=== PATIENT | female | born 1940 | race Caucasian/White ===

== ENCOUNTER 2017-11-18 09:25 | Outpatient (CLI) ==
--- NOTE | 2017-11-18 10:31 | DI ---
EXAM: Three views of the left knee. History: Left knee pain. Findings: No acute fracture or dislocation. Severe tricompartmental joint space narrowing with layne inal sclerosis, osteophyte formation. There is also chondrocalcinosis. Mild patellar enthesiopathy. Joint effusion is seen. There is medial soft tissue swelling and anterior soft tissue swelling. Impression: 1. No acute osseous abnormality. 2. Severe arthritis 3. Joint effusion
== END 2017-11-18 09:26 | disposition home or self-care (01) ==
LOC: RAD 09:25
PROVIDERS: ATTEND Family Medicine
DX: M25.562 Pain in left knee (principal); M25.462 Effusion, left knee

== ENCOUNTER 2018-06-03 08:52 | Observation (INO) ==
[2018-06-03 09:44] VITALS: BMI 25.3
[2018-06-03] MEDS ORDERED: LASIX IVP ONE ×2 (13:00→15:00)
[2018-06-03] MEDS ORDERED: LASIX ONE (17:33)
[2018-06-03] MEDS ORDERED: INFED 975 MG in SODIUM CHLORIDE 500 ML IV ONE (18:45)
[2018-06-03] MEDS ORDERED: INFED IVP STA (18:49)
[2018-06-03] MEDS ORDERED: INFED IVP ONE (18:57)
[2018-06-03 21:34] VITALS: BP 147/72; TEMP 98.6
[2018-06-04] MEDS ORDERED: LASIX IVP ONE (15:00)
--- NOTE | 2018-08-03 13:19 | SSS ---
DATE OF SERVICE: 06/04/18 DISCUSSION: This is an 78-year-old lady with a history of severe knee pain who is actually scheduled for a knee replacement next week. However, in preop lab she was found to be severely anemic. She denied any melenic stools or bright red blood in the stool. She did notice that she felt weak and occasionally short of breath with exertion. She was found to have hemoglobin of 8 with significant symptoms of shortness of breath on any type of exertion therefore she was admitted for transfusion with improvement. She was admitted for packed red cells and further evaluation of her anemia. PAST MEDICAL HISTORY: MEDICATIONS: Buspar Vitamin B12 Calcium Carbonate Lisinopril Hydrochlorothiazide [place] 3 ALLERGIES: NKDA PAST MEDICAL HISTORY: History of anxiety History of hypertension PAST SURGICAL HISTORY: Denies any previous surgeries SOCIAL HISTORY: She is . Denies any illicit substance or tobacco use. FAMILY HISTORY: Reviewed and thought not to be pertinent to discussion. REVIEW OF SYSTEMS: She notes weakness and shortness of breath with moderate exertion. Denies any chest pain, abdominal pain, blood in the stool, urinary symptoms or seizures. PHYSICAL EXAMINATION: VITAL SIGNS: Temperature 96, pulse 70, respirations 18 and blood pressure 120/ 80. HEENT: Pupils are round. NECK: Supple. CHEST: Clear. CARDIOVASCULAR: Regular rate and rhythm. ABDOMEN: Soft, nontender. EXTREMITIES: Distal extremities without cyanosis or edema. CLINICAL COURSE: She was admitted to my services and given transfusions of packed red cells with improvement in her symptoms. Repeat hematocrit was improved and at this point the patient was discharged for further outpatient followup and to get knee surgery next week. ZOE
== END 2018-06-04 00:15 | disposition home or self-care (01) ==
LOC: MEDSURG B 08:52
PROVIDERS: ADMIT Family Medicine; ATTEND Family Medicine
DX: R53.1 Weakness (principal); M25.569 Pain in unspecified knee; D64.9 Anemia, unspecified; R06.02 Shortness of breath
CPT/HCPCS: 36415; 36430; 80053; 82607; 82728; 83036; 83540; 85014; 85018; 85025; 86850; 86900; 86922; 96365; 96366; 96375; 96376

== ENCOUNTER 2020-11-18 11:32 | Observation (INO) ==
[2020-11-18] MEDS ORDERED: SODIUM CHLORIDE 1,000 ML IV STA ×2 (12:07→14:34)
--- NOTE | 2020-11-18 12:11 | ED.PDOC ---
General ED Provider: Dr. CASSIE MELVIN MD Chief Complaint: Weakness Stated Complaint: mild to mod generalized weakness for a few days, no recent injury despite hx of falling, hx shingles and arthritis and htn, no fever, no NV, pt denies any pain Time Seen by Provider: 11/18/20 11:52 Mode of Arrival: Wheelchair Information Source: Patient Primary Care Provider: BATOOL YUNG Nursing and Triage Documentation Reviewed and Agree: Yes Does patient meet sepsis criteria?: No System Inflammatory Response Syndrome: Not Applicable Sepsis Protocol: For patient's 13 years and over: Temp is 96.8 and below OR 101 and greater Pulse >90 BPM Resp >20/minute Acutely Altered Mental Status Are patient's symptoms suggestive of a new infection, such as: -Pneumonia -Skin, Soft Tissue -Endocarditis -UTI -Bone, Joint Infection -Implantable Device -Acute Abdominal Infection -Wound Infection -Meningitis -Blood Stream Catheter Infection -Unknown Review of Systems Review Of Systems Constitutional: Reports Weakness; Denies Fever Eyes: Denies Vision change Ears, Nose, Mouth, Throat: Denies Throat pain Respiratory: Denies Short of air Cardiac: Denies Chest pain GI: Denies Abdominal pain : Denies Frequency Musculoskeletal: Denies Neck pain Skin: Denies Rash or Cyanosis Neurological: Denies Cognitive dysfunction or Headache All Other Systems: Other PFSH Female Reproductive History Menstrual Hx Hysterectomy: No Hx Tubal Ligation: Yes Physical Exam Physical Exam Appearance: Reports Well-appearing Ill-appearing: Not Applicable Pain Distress: Not Applicable Eyes: Reports LINDA, EOMI and Conjunctiva clear ENT: Reports Oropharynx normal Neck: Supple Respiratory: Reports Airway patent, Breath sounds clear and Breath sounds equal Cardiovascular: Reports RRR GI/: Reports Soft, Nontender and Other (hemoccult neg stool, no hemorrhoids, +stage 1 erythema sacral pressure sore, no ulceration) Musculoskeletal: Reports 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) and Other (paraspinal tender mid back) Skin: Reports Warm and Dry Neurological: Reports Cranial nerves intact, Alert and Oriented Psychiatric: Reports Affect appropriate Interpretation Radiology Interpretation Radiology Interpretation By: Radiologist Exam Interpreted: CT Scan Xray Comments: +sinusitis o/w nap per Rad Radiology Interpretation By: Radiologist Radiology Results: No acute changes Exam Interpreted: CXR EKG Interpretation Time of EKG #1: 14:29 Rate: Normal Rhythm: Sinus Interpretation: lvh, no stemi Critical Care Note Critical Care Note Total Critical Care Time (mins): 0 Course Course Hematology/Chemistry: 11/18/20 12:25 11/18/20 12:25 Orders, Labs, Meds: Lab Review 11/18/20 11/18/20 11/18/20 12:25 12:25 12:25 WBC 5.84 RBC 3.44 L Hgb 8.8 L Hct 30.4 L MCV 88.4 MCH 25.6 L MCHC 28.9 L RDW Coeff of [place] 17.0 H Plt Count 340 Immature Gran % (Auto) 0.3 Neut % (Auto) 62.3 Lymph % (Auto) 24.5 [place] % (Auto) 7.7 Eos % (Auto) 4.5 Baso % (Auto) 0.7 Neut # (Auto) 3.6 Lymph # (Auto) 1.4 [place] # (Auto) 0.5 Eos # (Auto) 0.3 Baso # (Auto) 0.0 Immature Gran # (Auto) 0.0 Hypochromasia 1+ Anisocytosis Not present Sodium 142.0 Potassium 3.48 L Chloride 106.0 Carbon Dioxide 27.3 Anion Gap 12.18 BUN 17.9 H Creatinine 0.64 Estimated GFR (MDRD) 89.00 BUN/Creatinine Ratio 27.96 Glucose 93.2 Lactic Acid 1.02 Calcium 9.32 Total Bilirubin 0.39 AST 27.0 ALT 19.7 Alkaline Phosphatase 61.8 Troponin I < 0.012 Total Protein 7.66 Albumin 3.66 Globulin 4.00 Albumin/Globulin Ratio 0.91 Urine Color Urine Clarity Urine pH Ur Specific [place] Urine Protein Urine Glucose (UA) Urine Ketones Urine Blood Urine Nitrite Urine Bilirubin Urine Urobilinogen Ur Leukocyte Esterase Stl Occult Blood (IFOB) Stool Occult Blood #2 Stool Occult Blood #3 11/18/20 11/18/20 13:55 14:00 WBC RBC Hgb Hct MCV MCH MCHC RDW Coeff of [place] Plt Count Immature Gran % (Auto) Neut % (Auto) Lymph % (Auto) [place] % (Auto) Eos % (Auto) Baso % (Auto) Neut # (Auto) Lymph # (Auto) [place] # (Auto) Eos # (Auto) Baso # (Auto) Immature Gran # (Auto) Hypochromasia Anisocytosis Sodium Potassium Chloride Carbon Dioxide Anion Gap BUN Creatinine Estimated GFR (MDRD) BUN/Creatinine Ratio Glucose Lactic Acid Calcium Total Bilirubin AST ALT Alkaline Phosphatase Troponin I Total Protein Albumin Globulin Albumin/Globulin Ratio Urine Color Yellow Urine Clarity Clear Urine pH 5.5 Ur Specific [place] 1.010 Urine Protein Negative Urine Glucose (UA) Negative Urine Ketones Negative Urine Blood Negative Urine Nitrite Negative Urine Bilirubin Negative Urine Urobilinogen 0.2 Ur Leukocyte Esterase Negative Stl Occult Blood (IFOB) Negative Stool Occult Blood #2 Pending Stool Occult Blood #3 Pending Orders Category Date Time Status EKG-(ED ONLY) Stat CARDIO 11/18/20 12:07 Completed CBC W/ AUTO DIFF Stat LAB 11/18/20 12:25 Completed COMPREHENSIVE METABOLIC PANEL Stat LAB 11/18/20 12:25 Completed LACTIC ACID Stat LAB 11/18/20 12:25 Completed OCCULT BLOOD, STOOL Stat LAB 11/18/20 14:00 Results RBC MORPHOLOGY Stat LAB 11/18/20 12:25 Completed TROPONIN I Stat LAB 11/18/20 12:25 Completed URINALYSIS C & S IF INDICATED Stat LAB 11/18/20 13:55 Completed Sodium Chloride 0.9% [Sodium Chloride] 1,000 ml MEDS 11/18/20 12:07 Discontinued IV BOLUS CHEST, 1V AP ONLY Stat RADS 11/18/20 12:[address] CERVICAL SPINE W/O CONTRAST Stat RADS 11/18/20 14:[address] HEAD W/O CONTRAST Stat RADS 11/18/20 12:[address] LUMBAR SPINE W/O CONTRAST Stat RADS 11/18/20 14:[address] PELVIS W/O CONTRAST Stat RADS 11/18/20 14:[address] THORACIC SPINE W/O CONTRAST Stat RADS 11/18/20 14:25 Ordered Medications Discontinued Medications Generic Name Dose Route Start Last Admin Trade Name Freq PRN Reason Stop Dose Admin Sodium Chloride 1,000 mls @ 1,000 mls/hr 11/18/20 12:07 11/18/20 12:45 Sodium Chloride IV 11/18/20 13:06 1,000 mls/hr BOLUS STA Administration Vital Signs: Temp Pulse Resp BP Pulse Ox 11/18/20 11:33 98.7 F 68 18 121/71 97 Discharge Plan Discharge Patient Disposition: PLACED OBSERVATION Discharge Problem: Weakness, Sinusitis Prescriptions: No Action calcium carbonate-vitamin D3 [Calcium 600 + D(3)] 1 EACH tablet 1 ea PO DAILY RF: 0 buspirone 15 MG tablet 0.5 tab PO BID RF: 0 Fish Oil 1 EACH capsule 1 ea PO DAILY RF: 0 vitamin [id number] acid 1 EACH tablet 1 ea PO DAILY RF: 0 lisinopril-hydrochlorothiazide 10-12.5 mg Tablet 1 tab PO DAILY RF: 0 acetaminophen [Tylenol Arthritis Pain] 650 mg Tablet Extended Release 650 mg PO Q8H PRN (Reason: Pain) RF: 0 ED Provider: CASSIE MELVIN Condition: Stable Physician Progress Note: []differential includes deconditioning, occult fx, anemia, lung nodule, admit to obs d/w Dr Yung
[2020-11-18 12:31] LABS: BASOPHILS % (AUTO) 0.7 % (0.0-3.0); EOSINOPHILS # (AUTO) 0.3 K/ul (0.0-0.7); EOSINOPHILS % (AUTO) 4.5 % (0.0-7.0); HEMATOCRIT 30.4 % (37.0-47.0); HEMOGLOBIN 8.8 g/dl (12.0-16.0); IMMATURE GRANULOCYTE % (AUTO) 0.3 % (0.0-5.0); LYMPHOCYTES # (AUTO) 1.4 K/uL (0.60-3.4); LYMPHOCYTES % (AUTO) 24.5 (10.0-50.0); MEAN CORPUSCULAR HEMOGLOBIN 25.6 pg (27.0-31.0); MEAN CORPUSCULAR HGB CONC 28.9 (31.8-35.4); MEAN CORPUSCULAR VOLUME 88.4 fl (81.0-99.0); MONOCYTES # (AUTO) 0.5 K/uL (0.4-2.0); MONOCYTES % (AUTO) 7.7 (0-10); NEUTROPHILS # (AUTO) 3.6 K/ul (2.0-6.9); NEUTROPHILS % (AUTO) 62.3 % (42.2-75.2); PLATELET COUNT 340 10^3/uL (140-440); RED BLOOD COUNT 3.44 10^6/ul (4.20-5.40); WHITE BLOOD COUNT 5.84 K/ul (4.6-10.2)
[2020-11-18 12:41] LABS: ANISOCYTOSIS NOT PRESENT (NOT PRESENT); HYPOCHROMASIA 1+ (NOT PRESENT)
[2020-11-18 12:51] LABS: ALANINE AMINOTRANSFERASE 19.7 U/L (0-35); ALBUMIN 3.66 g/dL (3.5-5.0); ALKALINE PHOSPHATASE 61.8 U/L (53-141); BILIRUBIN,TOTAL 0.39 mg/dL (0.2-1.3); BLOOD UREA NITROGEN 17.9 mg/dL (7-17); CALCIUM 9.32 mg/dL (8.4-10.2); CARBON DIOXIDE 27.3 mmol/L (22-30.0); CREATININE 0.64 mg/dL (0.60-1.30); GLUCOSE 93.2 mg/dL (74-106); POTASSIUM 3.48 mmol/L (3.5-5.1); TOTAL PROTEIN 7.66 g/dL (6.3-8.2)
[2020-11-18 13:03] LABS: TROPONIN I < 0.012 ng/ml (0.0000-0.120)
--- NOTE | 2020-11-18 13:09 | CT ---
EXAM: CT Head HISTORY: Weak COMPARISON: 11/13/2020 TECHNIQUE: CT head performed without contrast FINDINGS: There is no mass effect, midline shift, or intracranial hemmorhage. Hull white differenti ation is preserved. There is no extra-axial collection. The ventricles, sulci, and basal cisterns a re patent and symmetric. There is chronic ischemic disease of the white matter and cerebral volume l oss. There is no depressed calvarial fracture. The mastoid air cells are clear. Mucosal thickening of the paranasal sinuses. There are intracranial atherosclerotic calcifications. Stable small nonspec ific high density in the frontal scalp. IMPRESSION: 1. No acute intracranial abnormality. 2. Chronic ischemic disease of the white matter and cerebral volume loss. 3. Sinusitis All CT scans are performed using dose optimization techniques as appropriate to the performed exam an d include at least one of the following: Automated exposure control, adjustment of the mA and/or kV according t o size, and the use of iterative reconstruction technique.
--- NOTE | 2020-11-18 13:12 | DI ---
EXAM: Chest one view HISTORY: Weak COMPARISON: 11/13/2020 TECHNIQUE: Single view of the chest was performed FINDINGS: No airspace consolidation. Stable upper lobe opacities that may reflect pleural calcifica tions. There is no pleural effusion or pneumothorax. The heart is normal in size. The mediastinal contour is normal. There are no acute abnormalities of the bones. IMPRESSION: 1. No acute cardiopulmonary process. 2. Stable upper lobe opacities that may reflect pleural calcifications. Nodule not excluded. Recom mend correlation with CT chest
[2020-11-18 14:15] LABS: BILIRUBIN,URINE Negative (NEGATIVE); CLARITY,URINE Clear (CLEAR); COLOR,URINE Yellow (YELLOW); GLUCOSE, URINE (UA) Negative (NEGATIVE); KETONES,URINE Negative (NEGATIVE); LEUKOCYTE ESTERASE ,URINE Negative (NEGATIVE); NITRITE,URINE Negative (NEGATIVE); PH,URINE 5.5 (5-9); PROTEIN,URINE Negative (NEGATIVE); URINE, BLOOD Negative (NEGATIVE); UROBILINOGEN,URINE 0.2 (0.2)
[2020-11-18 14:16] LABS: OCCULT BLOOD SAMPLE 1 NEGATIVE (NEGATIVE)
[2020-11-18] MEDS ORDERED: ROCEPHIN 1 GM/50 ML D5W 1 GM/50 ML BAG IV ONE (14:27)
[2020-11-18] MEDS ORDERED: NITROSTAT SL PRN (14:34)
[2020-11-18] MEDS ORDERED: ATROPINE SULFATE PFS IVP PRN (14:34)
[2020-11-18 14:47] LABS: BORDETELLA PARAPERTUSSIS (PCR) NOT DETECTED (NOT DETECT); BORDETELLA PERTUSSIS (PCR) NOT DETECTED (NOT DETECT); CHLAMYDIA PNEUMONIAE (PCR) NOT DETECTED (NOT DETECT); CORONAVIRUS 229E (PCR) NOT DETECTED (NOT DETECT); CORONAVIRUS HKU1 (PCR) NOT DETECTED (NOT DETECT); CORONAVIRUS NL63 (PCR) NOT DETECTED (NOT DETECT); CORONAVIRUS OC43 (PCR) NOT DETECTED (NOT DETECT); HUMAN METAPNEUMOVIRUS (PCR) NOT DETECTED (NOT DETECT); HUMAN RHINOVIRUS/ENTEROV (PCR) NOT DETECTED (NOT DETECT); INFLUENZA B (PCR) NOT DETECTED (NOT DETECT); MYCOPLASMA PNEUMONIAE (PCR) NOT DETECTED (NOT DETECT); PARAINFLUENZA VIRUS 1 (PCR) NOT DETECTED (NOT DETECT); PARAINFLUENZA VIRUS 2 (PCR) NOT DETECTED (NOT DETECT); PARAINFLUENZA VIRUS 3 (PCR) NOT DETECTED (NOT DETECT); PARAINFLUENZA VIRUS 4 (PCR) NOT DETECTED (NOT DETECT); RESPIRATORY SYNCYTIAL V (PCR) NOT DETECTED (NOT DETECT); SARS_COV_2 (PCR) NOT DETECTED (NOT DETECT)
[2020-11-18 15:36] LABS: ADENOVIRUS (PCR) NOT DETECTED (NOT DETECT)
--- NOTE | 2020-11-18 15:49 | CT ---
EXAM: CT Pelvis without contrast. HISTORY: Initial presentation for pelvic trauma due to a fall. COMPARISON: None. TECHNIQUE: Multiple axial images of the pelvis were obtained without intravenous contrast. Images w ere reformatted in the coronal and sagittal plane. FINDINGS: Please note that evaluation of the pelvic soft tissue structures is limited due to lack of intravenous contrast. Bone mineralization decreased. Bone island in the left femoral neck. There is no fracture or disloc ation. Mild osteoarthritic changes are present in both hips and pubic symphysis. Soft tissues demonstrate no acute abnormality. IMPRESSION: No fracture or dislocation. All CT scans are performed using dose optimization techniques as appropriate to the performed exam an d include at least one of the following: Automated exposure control, adjustment of the mA and/or kV according t o size, and the use of iterative reconstruction technique.
--- NOTE | 2020-11-18 15:50 | CT ---
EXAM: CT LUMBAR SPINE HISTORY: Fall TECHNIQUE: CT lumbar spine without contrast. 3-mm axial sections. Coronal and sagittal reformation s. COMPARISON: None FINDINGS: Bones appear demineralized. No fracture is identified. Vertebral body heights are maintained. Ther e is no spondylolisthesis or scoliosis. Sacroiliac joints are intact with moderate arthropathy. Dif fuse degenerative disc and facet disease. Greatest disc bulge is probably at L3/L4 where there is li gamentum flavum hypertrophy and facet arthropathy. These in total lead to at least mild central herman l stenosis and bilateral neural foraminal narrowing. There is no paraspinal fluid collection or saad torres. Incidental findings include bilateral nephrolithiasis and atherosclerotic disease. IMPRESSION: 1. Degenerative changes of the spine. No fracture or spondylolisthesis. _ All CT scans are performed using dose optimization techniques as appropriate to the performed exam an d include at least one of the following: Automated exposure control, adjustment of the mA and/or kV according t o size, and the use of iterative reconstruction technique.
--- NOTE | 2020-11-18 15:53 | CT ---
EXAM: CT of the cervical spine without contrast TECHNIQUE: Noncontrast CT of the cervical spine performed with multiplanar reformats. HISTORY: Fall. COMPARISON: None. FINDINGS: No acute fracture. No spondylolisthesis. Multilevel disc height loss, moderate at C6-C7. Multilevel mild facet arthrosis. Moderate sinus mucosal congestion. Enlarged thyroid with multiple small calcifications and appearance of small nodules. Scattered calcified atheromatous plaques. Imaged lung apices are clear, no apical pneumothorax. IMPRESSION: 1. No fracture of the cervical spine. 2. Enlarged heterogeneous thyroid gland. 3. Moderate sinus congestion. 4. Mild calcific atherosclerosis. All CT scans are performed using dose optimization techniques as appropriate to the performed exam an d include at least one of the following: Automated exposure control, adjustment of the mA and/or kV according t o size, and the use of iterative reconstruction technique.
--- NOTE | 2020-11-18 15:57 | CT ---
EXAM: CT thoracic spine without contrast. HISTORY: Initial presentation for back injury due to a fall. COMPARISON: None. TECHNIQUE: Multiple axial images of the thoracic spine were obtained without intravenous contrast. Images were reformatted in the sagittal and coronal planes. FINDINGS: The normal curvature and alignment are maintained. Vertebral body heights are normal. No fracture or subluxation is seen. Multilevel bridging osteophyte formation throughout most of the th oracic spine. Some areas of disc space narrowing present with some ankylosis across the T7-8 and T8- 9 vertebral bodies . No significant central canal stenosis identified. Adjacent soft tissues are un remarkable. Atherosclerotic calcifications present. Left nephrolithiasis. IMPRESSION: No acute abnormality of the thoracic spine. All CT scans are performed using dose optimization techniques as appropriate to the performed exam an d include at least one of the following: Automated exposure control, adjustment of the mA and/or kV according t o size, and the use of iterative reconstruction technique.
[2020-11-18 16:56] LABS: OCCULT BLOOD SAMPLE 2 NO SPECIMEN RECEIVED (NEGATIVE); OCCULT BLOOD SAMPLE 3 NO SPECIMEN RECEIVED (NEGATIVE)
[2020-11-18 17:06] VITALS: BMI 25.5
[2020-11-18 18:34] LABS: CREATINE KINASE 45.3 U/L (30-135)
[2020-11-18 18:47] LABS: TROPONIN I < 0.012 ng/ml (0.0000-0.120)
[2020-11-18] MEDS: TYLENOL PO PRN (20:43)
[2020-11-19 02:05] LABS: BASOPHILS % (AUTO) 0.7 % (0.0-3.0); EOSINOPHILS # (AUTO) 0.3 K/ul (0.0-0.7); HEMATOCRIT 28.2 % (37.0-47.0); HEMOGLOBIN 8.4 g/dl (12.0-16.0); IMMATURE GRANULOCYTE % (AUTO) 0.4 % (0.0-5.0); LYMPHOCYTES # (AUTO) 1.6 K/uL (0.60-3.4); LYMPHOCYTES % (AUTO) 27.5 (10.0-50.0); MEAN CORPUSCULAR HEMOGLOBIN 26.3 pg (27.0-31.0); MEAN CORPUSCULAR HGB CONC 29.8 (31.8-35.4); MEAN CORPUSCULAR VOLUME 88.1 fl (81.0-99.0); MONOCYTES # (AUTO) 0.5 K/uL (0.4-2.0); MONOCYTES % (AUTO) 7.9 (0-10); NEUTROPHILS # (AUTO) 3.3 K/ul (2.0-6.9); NEUTROPHILS % (AUTO) 57.5 % (42.2-75.2); PLATELET COUNT 344 10^3/uL (140-440)
[2020-11-19 02:17] LABS: ALANINE AMINOTRANSFERASE 18.8 U/L (0-35); ALBUMIN 3.34 g/dL (3.5-5.0); ALKALINE PHOSPHATASE 58.7 U/L (53-141); ASPARTATE AMINO TRANSFERASE 37.5 U/L (14-36); BILIRUBIN,TOTAL 0.24 mg/dL (0.2-1.3); BLOOD UREA NITROGEN 15.2 mg/dL (7-17); CALCIUM 8.86 mg/dL (8.4-10.2); CARBON DIOXIDE 27.3 mmol/L (22-30.0); CHLORIDE 107.6 mmol/L (98-107); CREATINE KINASE 42.3 U/L (30-135); CREATININE 0.65 mg/dL (0.60-1.30); GLUCOSE 98.9 mg/dL (74-106); POTASSIUM 3.41 mmol/L (3.5-5.1); SODIUM 141.4 mmol/L (134.5-145); TOTAL PROTEIN 6.96 g/dL (6.3-8.2)
[2020-11-19 02:28] LABS: TROPONIN I < 0.012 ng/ml (0.0000-0.120)
[2020-11-19] MEDS: TYLENOL PO PRN ×4 (05:11→21:35)
[2020-11-19] MEDS ORDERED: DULCOLAX PO PRN (07:26)
[2020-11-19] MEDS ORDERED: LISINOPRIL HYDROCHLOROTHIAZIDE PO SCH (07:30)
[2020-11-19] MEDS: PRED FORTE 1% EACHEYE SCH ×9 (07:45→23:52)
[2020-11-19] MEDS ORDERED: HYDROCHLOROTHIAZIDE PO SCH ×2 (08:00→09:00)
[2020-11-19] MEDS: ZESTRIL PO SCH (08:07)
[2020-11-19] MEDS: CALCIUM 500 + VIT D 5 MCG (200 IU) TABLET PO SCH (08:08)
[2020-11-19] MEDS: NON-FORMULARY MEDICATION (Glucosamine-Chondroitin [Osteo Bi-Flex] 250-200 mg Tablet) PO SCH (08:08)
[2020-11-19] MEDS: VITAMIN B12 FOLIC ACID PO SCH (08:08)
[2020-11-19] MEDS: BUSPAR PO SCH ×2 (08:08→20:59)
[2020-11-19] MEDS ORDERED: NON-FORMULARY MEDICATION (Calcium Carbonate-Vitamin D3 [Calcium 600 + D(3)] 1 EACH tablet) PO SCH (09:00)
[2020-11-19] MEDS ORDERED: VALTREX PO SCH (09:00)
[2020-11-19] MEDS: HYDROCHLOROTHIAZIDE PO SCH ×2 (09:01→09:21)
--- NOTE | 2020-11-19 13:23 | RS.PTINEVL ---
Subjective - Patient information Date of Evaluation: 11/19/20 Date of Arrival on Unit: 11/18/20 (OBSERVATION) Admitted From:: Home Diagnosis: weakness, shingles, impaired balance. Usual Living Arrangement: With Others Living Arrangement Comments: pt has been staying with her niece for approx 3 weeks prior to that she was living alone in her home. Home Environment: House, Stairs (few), Rail Medical History: Hypertension Medical History Comments:: fall approx 3 weeks ago?, shingles, depression Surgical History: Knee Replacement Surgical History Comments:: Carpal tunnel surgery, Medications: see chart Subjective Information/ Patient Comments:: pt states that she is here to get therapy so she can go back home because her niece is having a shld replacement in approx 1 month. - Level of function Abilities prior to this admission: pt amb short distances independently. Niece assisted with ADL's Current Level of Function: Partially Dependent Current Equipment Used at Home: walker, cane, raised toilet seat, shower chair Pain Assessement - Location Head Description: Sharp Pain Behavior: Rubbing Site, Facial Grimacing Effects of Pain: due to shingles Interventions - Objective Patient Orientation: Person, Place, Situation Current Interventions: IV's, Telemetry Range of Motion - ROM Right Upper Extremity AROM: WFL's Left Upper Extremity AROM: WFL's Right Lower Extremity AROM: WFL's Left Lower Extremity AROM: WFL's Muscle Strength - Muscle Strength Right Upper Extremity Strength: Mild Weakness (grossly 4/5) Left Upper Extremity Strength: Mild Weakness (grossly 4/5) Right Lower Extremity Strength: Mild Weakness (hip flex 4/5, knee flex/ext 4+/5, ankle DF/PF 4+/5) Left Lower Extremity Strength: Mild Weakness (hip flex 4/5, knee flex/ext 4+/5, ankle DF/PF 4+/5) Sensation - Sensation Right Upper Extremity Sensation: Intact/Normal Left Upper Extremity Sensation: Intact/Normal Right Lower Extremity Sensation: Intact/Normal Left Lower Extremity Sensation: Intact/Normal Palpation Palpation Findings: None/Normal Balance - Sitting Balance and Reactions Static Sitting Balance: Good Dynamic Sitting Balance: Fair - Standing Balance and Reactions Static Standing Balance: Fair Dynamic Standing Balance: Poor Standing Equilibrium Reactions: Delayed Left, Delayed Right Standing Protective Reactions: Delayed Left, Delayed Right Functional Mobility - Bed Mobility Rolling R/L: CGA Supine to Sit: Min Assist - Transfers Sit to Stand: CGA Stand to Sit: CGA - Safety Awareness Safety Awareness: Fair KARI INDEX SCORE: n/a Ambulation - Ambulation Assistive Device Used: Gait belt Distance: 20ft Assistance needed with Ambulation: CGA Quality of Ambulation: pt amb with hand held assist approx 20 ft with CGA. pt amb with decreased step length and slight flexed posture. Factors Affecting Ambulation: Decreased Balance, Pain, Weakness, Decreased S afety, Limited Endurance Treatment time - Time with patient Length of Evaluation: 21 Total treatment time: 29 Patient Education - Education Patient Education: Activity Modification, Education of Plan of Care Teaching Recipient: Patient Teaching Methods: Discussion Comments: discussion with patient regarding POC and home safety Assessment - Assessment Problem List:: Decreased level of function, Requires training/education, Decreased safety/Risk of falls, Weakness, Pain limits previous level of func tion, Cognitive status limits abilities Rehab Potential: Good Further Therapy Indicated?: Yes Candidate for Swing Bed for Therapy Services?: Feel pt may not be a candidate for swing bed due to being in OBS. Feel pt would benefit from home health PT/OT if going home with her niece. Feel pt would not be safe to return home in dependently. May benefit from LTC if going home with family not an option. Evaluation Complexity: HISTORY: Medium, EXAM OF BODY SYSTEMS: Medium, CLINICAL PRESENTATION: Medium, CLINICAL DECISION MAKING: Medium Patient's Goal(s): Get stronger. Short Term Goals GOAL #1: pt independent with bed mobility. Goal to be met by: 11/21/20 GOAL #2: Transfer sup to/from sit CGA Goal to be met by: 11/21/20 GOAL #3: Transfer sit to/from stand SBA Goal to be met by: 11/21/20 GOAL #4: pt amb with rwx 75ft with CGA no LOB Goal to be met by: 11/21/20 GOAL #5: Improve dyn stand balance fair Goal to be met by: 11/21/20 Skilled Nursing Goals GOAL #1: Transfer sup to/from sit to/from stand SBA Goal to be met by: 11/22/20 GOAL #2: pt amb 100ft with rwx SBA Goal to be met by: 11/22/20 GOAL #3: pt ascend/descend 3 steps with HR CGA Goal to be met by: 11/22/20 Plan Plan of Care: Therapeutic EX, Therapeutic Activity Other:: gait training Frequency of Treatment: 1-2 X day, as tolerated Duration of Treatment: 3 days Anticipated Discharge Destination: undetermined Treatment Diagnosis (ICD 10 Codes): impaired balance R 26.81. gait difficulty R 26.2. weakness M62.81 Has the Physician been added for Co-signature?: Yes
[2020-11-19] MEDS: VALTREX PO SCH (20:59)
[2020-11-20] MEDS: PRED FORTE 1% EACHEYE SCH ×11 (02:38→21:18)
[2020-11-20] MEDS: TYLENOL PO PRN ×3 (05:01→15:16)
[2020-11-20] MEDS: VALTREX PO SCH ×2 (08:48→21:10)
[2020-11-20] MEDS: HYDROCHLOROTHIAZIDE PO SCH (08:49)
[2020-11-20] MEDS: CALCIUM 500 + VIT D 5 MCG (200 IU) TABLET PO SCH (08:53)
[2020-11-20] MEDS: ZESTRIL PO SCH (08:54)
[2020-11-20] MEDS: BUSPAR PO SCH ×2 (08:54→21:08)
[2020-11-20] MEDS: VITAMIN B12 FOLIC ACID PO SCH (09:02)
[2020-11-20] MEDS: NON-FORMULARY MEDICATION (Glucosamine-Chondroitin [Osteo Bi-Flex] 250-200 mg Tablet) PO SCH (09:02)
--- NOTE | 2020-11-20 11:58 | RS.OTINEVL ---
Subjective - Patient information Date of Evaluation: 11/20/20 Date of Arrival on Unit: 11/18/20 (OBSERVATION) Admitted From:: Home Diagnosis: Weakness, sinusitis PRECAUTIONS: Fall risk, Shingles Usual Living Arrangement: With Others Living Arrangement Comments: pt has been staying with her niece for approx 3 weeks prior to that she was living alone in her home. Home Environment: House, Stairs (few), Rail Medical History: Hypertension Medical History Comments:: fall approx 3 weeks ago?, shingles, depression Surgical History: Knee Replacement Surgical History Comments:: Carpal tunnel surgery, Medications: see chart Subjective Information/ Patient Comments:: Pt reported she went to live with her niece because of her fall at home. Pt reported she was living at home alone and taking care of herself. - Level of function Prior to this admission, the patient could do the following:: Independent Selfcare Abilities prior to this admission: Independent with self care. Current Level of Function: Partially Dependent Comments: Pt is not trying to take care of herself at this point. Pt has shingles above the right eye and her vision has improved. Pt reports the right eye is painful. Pt is able to complete sit to stand with RW CGA. Current Equipment Used at Home: walker, cane, raised toilet seat, shower chair Pain Assessment - Pain Pain Score: 9 Side: right Pain Location Body Site: Eye Pain Alleviating Factors: Ice, Heat Interventions - Objective Patient Orientation: Person, Situation Current Interventions: IV's, Telemetry Observation: Pt has been living with her niece for 3 weeks and she reports 1 week. Pt minimal assist to sit EOB. Interventions - ROM Right Upper Extremity AROM: WFL's Left Upper Extremity AROM: WFL's - Strength Right Upper Extremity Strength: Mild Weakness Left Upper Extremity Strength: Mild Weakness - Sensation Right Upper Extremity Sensation: Intact/Normal Left Upper Extremity Sensation: Intact/Normal Balance - Sitting Balance Static Sitting Balance: Good Dynamic Sitting Balance: Good - Standing Balance Static Standing Balance: Poor Dynamic Standing Balance: Poor ADL Skills - Self Feeding Self Feeding: Independent - Grooming Grooming: CGA - Dressing Dressing UE: Independent Dressing LE: Min Assist - Toilet Management Toilet Hygiene: Independent Toilet Clothing Management: CGA Functional Mobility - Bed Mobility Rolling R/L: Min Assist Scooting: Min Assist - Transfers Sit to Stand: CGA Stand to Sit: CGA Stand Pivot Transfers: CGA KARI INDEX SCORE: . Additional Treatment Performed - Time with patient Length of Evaluation: 25 Total treatment time: 20 Activities Do you enjoy playing games?: Yes Would you be interested in leaving your room for activities?: Yes Would you enjoy group activities?: Yes Do you have difficulty with your vision?: Yes What types of things do you enjoy doing? Any Hobbies?: Television Patient Interests:: Watching Television, Visiting/Socializing Patient Education Patient Education: Education of diagnosis, Education of Plan of Care Teaching Recipient: Patient Teaching Methods: Discussion Assessment Problem List:: Decreased level of function, Requires training/education, Decreased safety/Risk of falls, Pain limits previous level of function Rehab Potential: Good Further Therapy Indicated?: Yes Evaluation Complexity: HISTORY: Medium, EXAM OF BODY SYSTEMS: Medium, CLINICAL DECISION MAKING: Medium Patient's Goal(s): To get better and go to [facility]. Short Term Goals - Goals GOAL 1: Pt to increase dyn. Std. Bal. to Fair Goal to be met by: 11/22/20 GOAL 2: Pt to be Mod. I with toilet transfers. Goal to be met by: 11/22/20 GOAL 3: Pt to be Independent with bed mobility. Goal to be met by: 11/22/20 Shelter Goals GOAL 1: Pt to be Independent with ADLS. Goal to be met by: 11/23/20 GOAL 2: Pt to be mod-I with all functional mobility. Goal to be met by: 11/23/20 GOAL 3: Pt to increase activity tolerance to 15 minutes Goal to be met by: 11/23/20 Plan Plan of Care: Therapeutic EX, Therapeutic Activity, Self-Care/Home Management Frequency of Treatment: 1-2 X day, as tolerated Duration of Treatment: 1 Week Anticipated Discharge Destination: Assisted Living Facility Treatment Diagnosis (ICD 10 Codes): R53.1 Weakness, Z74.1 Need for assistance with personal care. Has the Physician been added for Co-signature?: Yes
[2020-11-20] MEDS ORDERED: K-DUR PO ONE (17:25)
[2020-11-20] MEDS: ULTRAM PO PRN (17:39)
[2020-11-21] MEDS: PRED FORTE 1% EACHEYE SCH ×9 (00:16→15:30)
[2020-11-21] MEDS: ULTRAM PO PRN (05:17)
[2020-11-21 05:54] LABS: BASOPHILS % (AUTO) 0.6 % (0.0-3.0); EOSINOPHILS # (AUTO) 0.3 K/ul (0.0-0.7); EOSINOPHILS % (AUTO) 5.3 % (0.0-7.0); HEMATOCRIT 28.8 % (37.0-47.0); HEMOGLOBIN 8.5 g/dl (12.0-16.0); IMMATURE GRANULOCYTE % (AUTO) 0.2 % (0.0-5.0); LYMPHOCYTES # (AUTO) 1.2 K/uL (0.60-3.4); LYMPHOCYTES % (AUTO) 19.3 (10.0-50.0); MEAN CORPUSCULAR HEMOGLOBIN 26.1 pg (27.0-31.0); MEAN CORPUSCULAR HGB CONC 29.5 (31.8-35.4); MEAN CORPUSCULAR VOLUME 88.3 fl (81.0-99.0); MONOCYTES # (AUTO) 0.5 K/uL (0.4-2.0); MONOCYTES % (AUTO) 7.9 (0-10); NEUTROPHILS # (AUTO) 4.3 K/ul (2.0-6.9); NEUTROPHILS % (AUTO) 66.7 % (42.2-75.2); PLATELET COUNT 373 10^3/uL (140-440); RDW COEFFICIENT OF VARIATION 17.5 % (11.6-14.8); RED BLOOD COUNT 3.26 10^6/ul (4.20-5.40); WHITE BLOOD COUNT 6.42 K/ul (4.6-10.2)
[2020-11-21 05:59] VITALS: BP 137/67; TEMP 97.9
[2020-11-21 06:07] LABS: BLOOD UREA NITROGEN 15.9 mg/dL (7-17); CALCIUM 9.18 mg/dL (8.4-10.2); CARBON DIOXIDE 25.8 mmol/L (22-30.0); CHLORIDE 104.5 mmol/L (98-107); CREATININE 0.69 mg/dL (0.60-1.30); GLUCOSE 104.5 mg/dL (74-106); POTASSIUM 3.79 mmol/L (3.5-5.1)
[2020-11-21] MEDS: BUSPAR PO SCH (08:22)
[2020-11-21] MEDS: VALTREX PO SCH (08:22)
[2020-11-21] MEDS: HYDROCHLOROTHIAZIDE PO SCH (08:24)
[2020-11-21] MEDS: CALCIUM 500 + VIT D 5 MCG (200 IU) TABLET PO SCH (08:24)
[2020-11-21] MEDS: ZESTRIL PO SCH (08:24)
[2020-11-21] MEDS: NON-FORMULARY MEDICATION (Glucosamine-Chondroitin [Osteo Bi-Flex] 250-200 mg Tablet) PO SCH (08:28)
[2020-11-21] MEDS: VITAMIN B12 FOLIC ACID PO SCH (08:28)
[2020-11-21] MEDS ORDERED: TUBERSOL 10 TESTS ID ONE (11:46)
--- NOTE | 2020-11-22 09:07 | OTDC ---
Date of Evaluation:11/18/20 Diagnosis:[Weakness, Sinusitis] Number of visits:[] Last Date of Service:[11/21/20] Reason For Discharge:[Pt discharged to [facility]] Discharge Summary:[Pt evaluated by OT and patient is able to go to [facility] due to her high level of functioning. ] ZOE
--- NOTE | 2020-11-25 11:10 | SSS ---
PRINCIPAL DIAGNOSIS: 1. Inflammatory arthritis 2. Hypertension 3. Chronic anemia 4. Anxiety DISPOSITION: The patient was discharged and will be living at Assisted Living. DISCUSSION: This is an 80 year old lady with a history of chronic anemia followed by Dr. Maria, history of hypertension and a history of inflammatory arthritis. Recently has been afflicted with herpes zoster on the right side of the face presented with increased weakness and increased arthritic pain. Her POA, Erica Rushord indicated that she can no longer help care for Mrs. Marques who was and has no close family. She presented to the emergency department and was evaluated by Dr. Rodriguez and we decided because she wasn't able to care for herself at home she was admitted to Observation. PAST MEDICAL HISTORY: MEDICATIONS: Calcium bicarbonate Buspar Fish oil Vitamin B12 Lisinopril Tylenol ALLERGIES: No known drug allergies PAST MEDICAL HISTORY: History of chronic arthritis Degenerative joint disease Anxiety Hypertension History of depression and anxiety. PAST SURGICAL HISTORY: Denies any history of surgeries. SOCIAL HISTORY: She is . Nonsmoker. Never used alcohol. Denies any illicit drug use. FAMILY HISTORY: Positive for hypertension. REVIEW OF SYSTEMS: Mild headaches presumably secondary to her recent outbreak of herpes zoster. Denies any visual changes, tinnitus, chest pain, shortness of breath, hemoptysis, abdominal pain, blood in the stool, urinary symptoms or seizures. PHYSICAL EXAMINATION: VITAL SIGNS: Temperature 98.2, pulse 78, respirations 18 and blood pressure 160/90. Oxygen saturation 97%. EXAM: 80 Year old lady who is appears stated age. She is alert. HEENT: Pupils are round. NECK: Supple. CHEST: Clear. CARDIOVASCULAR: Regular rate and rhythm. ABDOMEN: Soft, nontender. EXTREMITIES: Distal extremities without cyanosis or edema. CLINICAL COURSE: She was admitted to my services. She was seen by physical therapy. We monitored her chronic anemia, there was no decline. She was out of bed and it was apparent that she was to be cared for at home. To this end we made arrangement for the patient to go to Assisted Living so at this point the patient is being discharged to home. We will continue her home medications plus Ultram 50mg every 8 hours as needed for pain. I will see her in the office in one week. ZOE
== END 2020-11-21 16:05 | disposition home or self-care (01) ==
LOC: MEDSURG A 11:32 → ED 11:32 → MEDSURG A 16:45
PROVIDERS: ADMIT Family Medicine; ATTEND Family Medicine
DX: B00.9 Herpesviral infection, unspecified; F41.9 Anxiety disorder, unspecified; J01.90 Acute sinusitis, unspecified; D64.9 Anemia, unspecified; I10 Essential (primary) hypertension; M19.90 Unspecified osteoarthritis, unspecified site; Z20.822 Contact with and (suspected) exposure to COVID-19